=== PATIENT | male | born 1955 | race Caucasian/White ===

== ENCOUNTER 2021-04-20 07:15 | Outpatient (CLI) | payer MEDICARE, OTHER ==
--- NOTE | 2021-04-20 09:25 | Ultrasound Report ---
PROCEDURE: Aorta Screening INDICATIONS: SCREENING FOR AAA TECHNIQUE: Real time scanning was performed of the aorta and iliac arteries, with image documentatio n. COMPARISON: None FINDINGS: Aorta: Proximal aortic diameter measures 2.3 x 2.3 cm. Mid-aorta measures 1.9 x 1.9 cm. Distal aor tic diameter is 1.8 x 1.7 cm. Iliac arteries: Right common iliac artery measures 1.6 x 1.3 cm. Left common iliac artery measures 1.6 x 1.4 cm. There is mild diffuse intimal irregularity suggestive of atherosclerosis. IMPRESSION: No evidence of abdominal aortic aneurysm. Reviewed by: Davon Estrada DO on 04/20/2021 8:24 AM SCOTT Approved by: Davon Estrada DO on 04/20/2021 8:24 AM SCOTT Station ID: [id number]
== END 2021-04-20 07:16 | disposition home or self-care (01) ==
LOC: DI 07:15
PROVIDERS: ATTEND Internal Medicine
DX: Z13.6 Encounter for screening for cardiovascular disorders (principal)

== ENCOUNTER 2024-01-11 10:45 | Outpatient (CLI) | payer MEDICARE, OTHER ==
--- NOTE | 2024-01-11 11:42 | Sleep Patient Instructions ---
Sleep Center Visit Summary - Patient Visit Information Reason for Visit: Insert initial consult - Patient Instructions Instructions Attached: Sleep Study Additional Instructions: You will be completing a sleep study, either an in-lab polysomnography (PSG) or home sleep study (HST). You will follow-up in the sleep care office after the sleep study is completed to hear the results and talk about therapy, if needed. You will be called by our office staff to schedule this appointment, but you may contact us with any questions. - Clinic Information Contact: [facility] [address] [place] [id number] [email or web address] T: [phone]
--- NOTE | 2024-01-11 11:55 | SLEEP CARE CONSULTATION ---
Information from patient questionnaire entered by Luanne Lockett. I have reviewed and concur with the information entered by Luanne Lockett. This document represents the service I personally performed and the decisions made by me, Sandrita Lazcano ARNP. History of Present Illness Service Date and Time: 01/11/2024 1045 Reason for Visit: New patient Chief Complaint: reports: Snoring, Observed pauses in breathing Date of Onset: 1 YR Usual bedtime: 2400 Time it takes to fall asleep: NOT LONG Snores at night: Yes Observed to quit breathing while asleep: Yes Sleeps alone due to snoring: No Number of times waking at night: 1-2 Reasons for waking at night: reports: Other (UNKNOWN). denies: Choking, Snoring, Gasping for air Toss, Turn, or Twitch while sleeping: Yes Recalls having dreams: Yes Usually gets out of bed at: 0800 Feels refreshed in the morning: Yes Morning headache: No Sleepy or fatigued during the day: No Ever fallen asleep while driving: No Takes day naps: No Dreams during day naps: No Prior sleep studies: No Additional HPI information: I had the pleasure of seeing ALCON ULRICH today regarding the possibility of him having a sleep disorder. His current complaints are snoring and observed pauses in breathing (according to ). He is here because his says he snores a lot, especially when on his back. He says he wakes up feeling refreshed most days and feels he has good energy during the day. He does not nap. He denies waking up gasping or choking in his sleep. - Parasomnia Symptoms Ever been unable to move upon waking from sleep: No Walks in sleep: No Talks in sleep: No Ever acted out dreams in sleep: No Ever felt weak in the knees when startled or emotional: No Bothered by creepy, crawly, restless sensations in legs: No Problems with memory or concentration: No Subjective Initial Durham Sleepiness Scale score: 1 (12/2023) Past Medical History Past Medical History: reports: Other (statin for cholesterol) Social History The patient's occupation is a RE. Patient is and lives in . Have you smoked in the past 12 months: No Cigarettes per day (20/pack): 20 Years of smokin Quit date: 1972 Smoking Pack Years: 10.0 Alcohol use: Yes Alcohol amount and frequency: LIGHT PERODIC Caffeine use: Yes Caffeine amount and frequency: 2 CUPS DAILY Family History Family history of sleep disordered breathing: Yes Family Hx Sleep Apnea: Father: Snoring Allergies and Home Medications Known drug allergies: No Drug allergies reviewed: Yes Home medication list reviewed: Yes (as listed) Allergy and home medication list: Allergies No Known Drug Allergies Allergy (Verified 01/11/24 10:54) Home Medications Multivitamin See Rx Instructions .ROUTE .COMPLEX 01/11/24 [History] Hartly-3/Dha/Epa/Fish Oil [Fish Oil 1,000 mg Softgel] See Rx Instructions .ROUTE .COMPLEX 01/11/24 [History] Rosuvastatin Calcium See Rx Instructions .ROUTE .COMPLEX 01/11/24 [History] Review of Systems Weight gain over past 5 years: about 5 Cardiovascular: denies: high blood pressure Gastrointestinal: denies: heartburn Neurological: denies: headaches Psychiatric: denies: anxiety, depression Ear/Nose/Throat: reports: sinus problems, tonsillectomy, wisdom teeth removed Immunologic: reports: sneezing, rash Physical Exam Vital signs obtained and entered by: LUANNE Zepeda MA Blood Pressure: 133/82 (LEFT ARM) Cuff size: long Heart Rate: 72 O2 Saturation: 99 Height: 5 ft 10 in Weight: 190 lb 12.8 oz Body Mass Index: 27.3 BMI Classification: Overweight Neck circumference: 14.75 Mouth and throat: narrow oropharynx Soft palate: long Hard palate: normal Uvula: normal Uvula visualization: 50% Mallampati Class II Tongue: enlarged in size with teeth mendes on lateral edges Tonsils: absent bilaterally Neck: normal w/o lymphadenopathy or thyromegaly Heart: regular rate and rhythm Lungs: clear bilaterally Impression and Plan 1. Suspected Obstructive Sleep Apnea-Hypopnea Syndrome, as suggested by a history of loud and irregular snoring and observed cessation of breath while asleep. Narrow oropharynx and obesity are common predisposing factors for obstructive sleep apnea-hypopnea syndrome. I recommend proceeding to polysomnography to confirm the diagnosis and to assess severity. If the patient has significant sleep disordered breathing, a manual CPAP titration study will also be performed to find the optimal treatment pressure. I informed the patient of what the sleep studies involve and after some discussion, obtained agreement to proceed. The pathophysiology of obstructive sleep apnea-hypopnea syndrome was discussed with the patient and health risks of cardiovascular and cerebrovascular disease if not treated. Risks of drowsy driving discussed in detail and patient advised to avoid long distance driving and to head well puller at the first sign of drowsiness. Patient agreed to plan. * Schedule polysomnography * Avoid long distance driving or driving when feeling sleepy. * Avoid alcohol, sedative and muscle relaxant around bedtime. * Attempt to lose weight. * Review instructions provided by trained office staff on how to prepare for the sleep study. * Return for follow-up after sleep study completed. Counseling Topics: Weight loss health impact Plan: PSG and follow up Visit Type: In Office Time Spent with Patient (minutes): 44 Provider Statement: I spent 100% of the Face to Face Visit with the patient with greater than 50% spent counseling the patient and coordination of care.
[2024-01-11 12:05] VITALS: BP 133/82; O2SAT 99
== END 2024-01-11 10:46 | disposition home or self-care (01) ==
LOC: SC 10:45
PROVIDERS: ATTEND Nurse Practitioner Family
DX: R06.83 Snoring (principal); R06.81 Apnea, not elsewhere classified; E66.3 Overweight; Z68.27 Body mass index [BMI] 27.0-27.9, adult; Z87.891 Personal history of nicotine dependence
CPT/HCPCS: 99203; G0463; 99212

== ENCOUNTER 2024-02-07 20:43 | Outpatient (CLI) | payer MEDICARE, OTHER | END 2024-02-07 20:44 | disposition home or self-care (01) | LOC: SC 20:43 | PROVIDERS: ATTEND Nurse Practitioner Family | DX: G47.33 Obstructive sleep apnea (adult) (pediatric) (principal); E66.3 Overweight; Z68.27 Body mass index [BMI] 27.0-27.9, adult | CPT/HCPCS: 95810 ==

== ENCOUNTER 2024-02-24 14:29 | Outpatient (CLI) | payer MEDICARE, OTHER ==
--- NOTE | 2024-02-24 14:58 | Sleep Patient Instructions ---
Sleep Center Visit Summary - Patient Visit Information Reason for Visit: Sleep study follow-up - Patient Instructions Instructions Attached: Apnea Sleep Mouthpieces Additional Instructions: You have opted for an oral mandibular appliance to control your sleep apnea. A list of certified dentists in the area was provided for you to find a dentist to have your oral appliance made. Once you have the device, please call and make a follow up appointment. We need to see you after you have been using the appliance for a month. We will evaluate your response to therapy and order a follow up sleep study to check efficiency of treatment. Please call office to schedule a follow up appointment in the sleep care office one month after obtaining new device. - Clinic Information Contact: [facility] [address] [place] [address] [email or web address] T: [phone]
--- NOTE | 2024-02-24 15:07 | SLEEP CARE CONSULTATION ---
Information from patient questionnaire entered by Caroline Burns. I have reviewed and concur with the information entered by Caroline Burns. This document represents the service I personally performed and the decisions made by , Sandrita Lazcano ARNP. History of Present Illness Service Date and Time: 02/24/2024 1429 Initial Yale Sleepiness Scale score: 1 (01/11/2024) Current Yale Sleepiness Scale score: 0 (02/24/2024) Additional HPI information: ALCON ULRICH returns for follow up and results of the recently performed polysomnography. The sleep study done on 02/07/24 showed moderate obstructive sleep apnea with an average AHI of 25.3 and memo oxygen saturation of 83%. I explained the pathophysiology behind obstructive sleep apnea. We then spent quite a bit of time discussing different treatment options. For mild obstru ctive sleep apnea, surgery and oral appliance are alternatives to nasal CPAP therapy but in moderate or severe cases, nasal CPAP is the most effective and reliable treatment. Because apnea is primarily in supine position, then positional management therapy could be effective. Methods discussed such as positioning with pillows, using a T-shirt with tennis balls in the back or commercial products that have a pillow format on back to prevent supine sleep. I reviewed the impact of weight changes on sleep apnea and strongly recommended losing weight. After some discussion, the patient opted to go with the oral appliance with positional therapy. Patient counseled not drink alcohol less than 4 hours before bedtime as it can increase snoring and apnea. Patient was cautioned about risks of d rowsy driving until sleepiness symptoms resolve. Patient denies drowsy driving. Sleep Study - Results Prior sleep studies: No Polysomnography/Home Sleep Study results: IMPRESSION: The quality of the study is good. The patient had normal sleep efficiency. The sleep architecture was abnormal for sleep fragmentation and reduced amount of time spent in REM and slow wave sleep (N3). Respiratory monitoring showed moderate obstructive sleep apnea-hypopnea (AHI = 25.3) associated with frequent arousals, oxyhemoglobin desaturation and mild hypoxia (memo oxygen saturation of 83%). The respiratory events occurred predominantly during supine sleep (supine AHI = 33.9; non-supine = 9.97). Snore was light to moderate in intensity. There was no significant periodic leg movement of sleep. Cardiac rhythm was normal sinus rhythm without significant arrhythmia. No abnormal behavior (parasomnia) observed during the night. Allergies and Home Medications Known drug allergies: No Drug allergies reviewed: Yes Home medication list reviewed: Yes (no changes) Allergy and home medication list: Allergies No Known Drug Allergies Allergy (Verified 01/11/24 10:54) Review of Systems Review of systems same as previous: Yes (no changes) Physical Exam Vital signs obtained and entered by: Sandrita Gongora NP Blood Pressure: 114/74 Cuff size: regular (right arm) Heart Rate: 64 O2 Saturation: 96 Height: 5 ft 10 in Weight: 188 lb 9.6 oz Body Mass Index: 27.0 BMI Classification: Overweight Impression and Plan 1. Obstructive Sleep Apnea-Hypopnea Syndrome, moderate, with lowest oxygen saturation of 83%. Patient states he rarely sleeps on his back, he only did for the night of the sleep study. CPAP therapy is gold standard treatment and was offered but patient would rather try a different option. We discussed that he could do positional therapy with an oral appliance to control his sleep apnea and he agreed that he would like to try this option. He is already spoke with his dentist about it who described what an oral appliance for sleep apnea entailed.The patient chose an oral appliance to treat their apnea. A follow up will be made about a month after he obtains his new device to see if appliance has reduced symptoms. If so, another polysomnography will be ordered with use of the oral appliance to check efficacy in reducing apnea. Until patient is able to use the oral appliance, positional therapy is advised to avoid supine sleep with pillow positioning or one of the commercial products because apnea is more severe supine. 2. Hypoxemia, mild, with a memo oxygen saturation of 83% and 14.3 minutes spent under 90%. The baseline oxygen saturation was normal with an average oxygen saturation of 92%. 3. Overweight, unspecified. Currently patients BMI is 27. Obesity increases the risk of apnea, CPAP pressure requirements and overall health risks especi ally cardiovascular and diabetes. Thus patient is advised to lose weight. * Oral appliance with positional therapy * Attempt to lose weight. * Avoid alcohol consumption near bedtime. * Avoid supine sleep. * Return one month after oral appliance obtained. I will assess response to therapy at that time. Counseling Topics: Weight loss health impact Prescriptions: Other (Oral appliance) Visit Type: In Office Time Spent with Patient (minutes): 29 Provider Statement: I spent 100% of the Face to Face Visit with the patient with greater than 50% spent counseling the patient and coordination of care.
[2024-02-24 15:11] VITALS: BP 114/74; O2SAT 96
== END 2024-02-24 14:30 | disposition home or self-care (01) ==
LOC: SC 14:29
PROVIDERS: ATTEND Nurse Practitioner Family
DX: G47.33 Obstructive sleep apnea (adult) (pediatric) (principal); R09.02 Hypoxemia; E66.3 Overweight; Z68.27 Body mass index [BMI] 27.0-27.9, adult
CPT/HCPCS: 99213; G0463; 99212